=== PATIENT | male | born 1945 | race Two or more races ===

== ENCOUNTER 2022-12-10 09:12 | Inpatient (IN) | payer OTHER ==
[~2022-12-10] VITALS: Ht 177.8 cm; Wt 81.6 kg
[2022-12-10] MEDS ORDERED: GLUMETZA1000 MG (09:30)
[2022-12-10 10:19] LABS: HEMATOCRIT 33.5 % (39.0-48.0); HEMOGLOBIN 10.9 g/dL (13-16.00); MEAN CELL VOLUME 94.9 fL (80.0-100.00); MEAN CORPUSCULAR HGB CONC 32.6 g/dl (32.0-36.0); PLATELET COUNT 326 K/uL (150-450); RED BLOOD COUNT 3.53 M/uL (4.00-6.00); RED CELL DISTRIBUTION WIDTH 13.6 % (11.5-14.5)
[2022-12-10 10:55] LABS: CALCIUM 9.7 mg/dL (8.5-10.1)
[2022-12-10 11:03] LABS: GFR 3.14
[2022-12-10 11:07] LABS: CREATININE SERUM 15.2 mg/dL (0.70-1.30)
[2022-12-10 11:08] LABS: POTASSIUM 5.98 mEq/L (3.5-5.1)
[2022-12-10 13:39] LABS: INR 1.08; PARTIAL THROMBOPLASTIN TIME 34.8 SECONDS (22.0-34.0); PROTHROMBIN TIME 11.3 SECONDS (9.0-11.5)
[2022-12-10 13:43] LABS: URINE BACTERIA 144.8 uL (0.0-1933); URINE EPITHELIAL CELLS 10.9 uL (0.0-38.8); URINE RBC 7.1 uL (0.0-20.8); URINE WBC 70.2 uL (0.0-23.2)
[2022-12-10 13:48] LABS: URINE APPEARANCE CLEAR; URINE COLOR YELLOW
[2022-12-10 13:49] LABS: PH,URINE 6.5; URINE BILIRRUBIN NEGATIVE (NEGATIVE); URINE BLOOD NEGATIVE; URINE GLUCOSE NEGATIVE (NEGATIVE); URINE LEUKOCYTE NEGATIVE; URINE NITRATE NEGATIVE; URINE PROTEIN NEGATIVE (NEGATIVE); URINE UROBILINOGEN 0.2 E.U./dl
[2022-12-11 06:21] LABS: HEMATOCRIT 29.6 % (39.0-48.0); HEMOGLOBIN 10.1 g/dL (13-16.00); MEAN CELL VOLUME 92.2 fL (80.0-100.00); MEAN CORPUSCULAR HEMOGLOBIN 31.6 pg (27.00-32.0); MEAN CORPUSCULAR HGB CONC 34.2 g/dl (32.0-36.0); PLATELET COUNT 317 K/uL (150-450); RED BLOOD COUNT 3.21 M/uL (4.00-6.00); RED CELL DISTRIBUTION WIDTH 13.5 % (11.5-14.5)
[2022-12-11 07:08] LABS: ALBUMIN 2.6 gm/dL (3.4-5.0); BILIRUBIN TOTAL 0.44 mg/dL (0.3-1.2); CALCIUM 8.8 mg/dL (8.5-10.1); GLOBULINA 3.3 G/DL (2.4-3.5); POTASSIUM 5.7 mEq/L (3.5-5.1); TOTAL PROTEIN 5.9 gm/dL (6.4-8.2)
[2022-12-11 08:19] LABS: GFR 3.83
[2022-12-11 08:21] LABS: CREATININE SERUM 12.8 mg/dL (0.70-1.30)
[2022-12-12 06:47] LABS: HEMATOCRIT 28.6 % (39.0-48.0); HEMOGLOBIN 9.7 g/dL (13-16.00); MEAN CELL VOLUME 92.6 fL (80.0-100.00); MEAN CORPUSCULAR HEMOGLOBIN 31.5 pg (27.00-32.0); PLATELET COUNT 352 K/uL (150-450); RED BLOOD COUNT 3.08 M/uL (4.00-6.00); RED CELL DISTRIBUTION WIDTH 13.9 % (11.5-14.5)
[2022-12-12 07:13] LABS: ALBUMIN 2.7 gm/dL (3.4-5.0); BILIRUBIN TOTAL 0.36 mg/dL (0.3-1.2); CALCIUM 8.6 mg/dL (8.5-10.1); GLOBULINA 3.4 G/DL (2.4-3.5); PHOSPHOROUS 6.3 mg/dL (2.5-4.9); POTASSIUM 4.91 mEq/L (3.5-5.1); TOTAL PROTEIN 6.1 gm/dL (6.4-8.2)
[2022-12-12 07:54] LABS: GFR 6.07
[2022-12-12 07:55] LABS: CREATININE SERUM 8.59 mg/dL (0.70-1.30)
[2022-12-12 10:49] LABS: URINE APPEARANCE Turbid; URINE BILIRRUBIN Small (NEGATIVE); URINE BLOOD Large; URINE COLOR Red; URINE GLUCOSE Negative (NEGATIVE); URINE LEUKOCYTE Moderate; URINE NITRATE Negative; URINE UROBILINOGEN 0.2 E.U./dl
[2022-12-12 10:50] LABS: URINE BACTERIA 1072.2 uL (0.0-1933); URINE EPITHELIAL CELLS 13.6 uL (0.0-38.8); URINE WBC 218.7 uL (0.0-23.2)
[2022-12-12 11:05] LABS: URINE PROTEIN 100 (NEGATIVE); URINE RBC > 10558.9 uL (0.0-20.8)
[2022-12-13 07:02] LABS: ALBUMIN 2.7 gm/dL (3.4-5.0); BILIRUBIN TOTAL 0.27 mg/dL (0.3-1.2); CALCIUM 8.7 mg/dL (8.5-10.1); GLOBULINA 3.1 G/DL (2.4-3.5); POTASSIUM 4.85 mEq/L (3.5-5.1); TOTAL PROTEIN 5.8 gm/dL (6.4-8.2)
[2022-12-13 07:55] LABS: GFR 10.31
[2022-12-13 07:56] LABS: CREATININE SERUM 5.43 mg/dL (0.70-1.30)
[2022-12-14 06:27] LABS: HEMATOCRIT 26.3 % (39.0-48.0); MEAN CELL VOLUME 93.6 fL (80.0-100.00); MEAN CORPUSCULAR HGB CONC 34.2 g/dl (32.0-36.0); PLATELET COUNT 358 K/uL (150-450); RED BLOOD COUNT 2.81 M/uL (4.00-6.00); RED CELL DISTRIBUTION WIDTH 13.6 % (11.5-14.5)
[2022-12-14 07:01] LABS: ALBUMIN 2.7 gm/dL (3.4-5.0); BILIRUBIN TOTAL 0.24 mg/dL (0.3-1.2); CALCIUM 8.3 mg/dL (8.5-10.1); CREATININE SERUM 3.54 mg/dL (0.70-1.30); GFR 16.89; PHOSPHOROUS 3.3 mg/dL (2.5-4.9); POTASSIUM 4.26 mEq/L (3.5-5.1); TOTAL PROTEIN 5.7 gm/dL (6.4-8.2)
[2022-12-14 07:57] LABS: MAGNESIUM 1.2 mg/dL (1.8-2.4)
[2022-12-14] MEDS ORDERED: CEFDINIR300 MG PO (18:48)
== END 2022-12-14 19:05 | disposition home or self-care (01) | DRG 694 ==
LOC: ER 09:12 → SEC-K 13:25 → MEDJ 13:25 → O/R 15:05 → MEDJ 16:52
PROVIDERS: General Practice; Internal Medicine; Internal Medicine Infectious Disease; Urology; ADMIT Internal Medicine; ATTEND Internal Medicine
PROC: BW21ZZZ Computerized Tomography (CT Scan) of Abdomen and Pelvis (ICD-10-PCS; 2022-12-10)
PROC: 0T7D4DZ Dilation of Urethra with Intraluminal Device, Percutaneous Endoscopic Approach (ICD-10-PCS; principal; 2022-12-10 14:15)
DX: N13.2 Hydronephrosis with renal and ureteral calculous obstruction (principal); N17.9 Acute kidney failure, unspecified; N13.30 Unspecified hydronephrosis; I12.9 Hypertensive chronic kidney disease with stage 1 through stage 4 chronic kidney disease, or unspecified chronic kidney disease; N18.9 Chronic kidney disease, unspecified; Z20.822 Contact with and (suspected) exposure to COVID-19; E11.22 Type 2 diabetes mellitus with diabetic chronic kidney disease; Z79.4 Long term (current) use of insulin